=== PATIENT | male | born 1965 | race Caucasian/White ===

== ENCOUNTER 2020-05-11 18:06 | Emergency (ER) | payer SELFPAY ==
[~2020-05-11] VITALS: Ht 180.3 cm; Wt 88.0 kg
[2020-05-11 18:10] VITALS: BP 114/86
[2020-05-11] MEDS ORDERED: LIDOCAINE MPF 1% 10 MG/ML VIAL INJ ONE ×2 (18:30→18:35)
[2020-05-11] MEDS ORDERED: BACITRACIN OINT 500 UNITS/GM PKT TP ONE (18:30)
[2020-05-11 19:12] VITALS: BP 114/86
== END 2020-05-11 19:12 | disposition home or self-care (01) ==
LOC: MED 18:06
DX: S61.012A Laceration without foreign body of left thumb without damage to nail, initial encounter (principal); Z88.6 Allergy status to analgesic agent; W26.8XXA Contact with other sharp object(s), not elsewhere classified, initial encounter; Y93.89 Activity, other specified; Y92.89 Other specified places as the place of occurrence of the external cause; Y99.8 Other external cause status
CPT/HCPCS: 12002; 99282; J2001